=== PATIENT | male | born 1970 | race Caucasian/White ===

== ENCOUNTER 2023-02-28 16:45 | Emergency (ER) | payer MEDICAID ==
--- NOTE | 2023-02-28 17:01 | ED Physician Documentation ---
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 He was anticoagulated for 2-1/2 years and then stopped and focused on healthy diet and exercise. 3 years ago he kind of stopped the healthy diet and exercise. 2 weeks ago he developed some pleuritic left lower chest pain that he thought was an injury related to leaning over an edge on the boat about that time. He developed shortness of breath as well. He did not really consider the possibility of recurrent thromboembolic disease until he started develop right leg and calf pain yesterday. He is short of breath with it. PD PAST MEDICAL HISTORY - Present Medications Home Medications: Ambulatory Orders Medication Instructions Recorded Confirmed Losartan [Cozaar] 50 mg PO DAILY #60 tablet 02/28/23 - Allergies Allergies/Adverse Reactions: Allergies Allergy/AdvReac Type Severity Reaction Status Date / Time Penicillins Allergy Rash Verified 02/28/23 17:02 PD ED PE NORMAL - Vitals Vital signs reviewed: Yes - General General: Alert and oriented X 3, No acute distress - Neck Neck: Supple, no meningeal sign, No bony TTP - Cardiac Cardiac: RRR, No murmur - Respiratory Respiratory: No respiratory distress, Clear bilaterally, Other (Slightly splinting his breaths) - Abdomen Abdomen: Non tender - Derm Derm: Normal color, Warm and dry - Extremities Extremities: Other (Tenderness of the right upper calf with some swelling but no cellulitis.) - Neuro Neuro: Alert and oriented X 3, Normal speech Results - Vitals Vitals: Vital Signs - 24 hr 02/28/23 02/28/23 16:57 18:42 Temperature 36.4 C L Heart Rate 77 71 Respiratory 20 18 Rate Blood Pressure 207/133 H 176/116 H O2 Saturation 99 96 Oxygen O2 Source Room air - EKG (time done) 1710 EKG releavant findings:: EKG personally interpreted by author of this note. Relevant findings are: Rate: Rate (enter#) (67) Rhythm: NSR [place]: Normal Intervals: Normal [place] QRS: Normal Ischemia: ST elevation c/w repol. No: ST elevation c/w ischemia, ST depression - Labs Labs: Laboratory Tests 02/28/23 02/28/23 17:18 17:18 WBC 5.6 RBC 4.93 Hgb 13.9 L Hct 41.5 L MCV 84.2 MCH 28.2 MCHC 33.5 RDW 14.1 Plt Count 193 MPV 9.1 Neut # (Auto) 3.0 Lymph # (Auto) 1.7 [place] # (Auto) 0.9 Eos # (Auto) 0.1 Baso # (Auto) 0.0 Absolute Nucleated RBC 0.00 Nucleated RBC % 0.0 Sodium 139 Potassium 3.9 Chloride 104 Carbon Dioxide 28 Anion Gap 7.0 BUN 9 Creatinine 0.9 Estimated GFR (MDRD) 88 L Glucose 103 H Calcium 8.9 PD Medical Decision Making - ED course ED course: 52-year-old gentleman with history of unprovoked thromboembolic disease presents with right leg pain and chest wall pain. Chest wall pain was related to an injury, but he only started to worry about the right leg pain when he recalled his DVT/PE from 14 or 15 years ago. Work-up here in the emergency department demonstrates a CBC with very mild anemia, CMP that is grossly normal. He had a CAT scan of his chest angiography protocol and a right lower extremity ultrasound that were negative for thromboembolic disease. Were several incidental findings on the CAT scan of the chest which were discussed with him and the need for follow-up for further imaging was discussed and he was given a copy of the read to aid in follow-up. His blood pressure here has been fairly elevated and we discussed starting antihypertensives and he would like to go ahead and start that. He also plans to eat better and exercise. Departure - Departure Disposition: 01 Home, Self Care Clinical Impression: Chest wall pain, Right leg pain Hypertension Qualifiers: Hypertension type: primary hypertension Qualified Code(s): I10 - Essential (primary) hypertension Condition: Good Record reviewed to determine appropriate education?: Yes Instructions: Choices Low Salt, ED Contusion Chest Wall, ED Hypertension New Begin Tx Prescriptions: Losartan [Cozaar] 50 mg PO DAILY #60 tablet Comments: As discussed, there is no evidence of blood clot either on the CAT scan of your chest nor on the ultrasound of your leg. But, also, as discussed, there are several findings on the CAT scan of your chest needing follow-up. This includes but is not limited to a nodule in your right middle lobe, some mildly enlarged lymph nodes in your chest and some small lesions in your liver. Mention this to the your new primary care physician. Call Friday for an appointment.
[2023-02-28] MEDS ORDERED: iohexoL-300 100 ML VIAL ONE (17:08)
[2023-02-28 17:23] LABS: BASOPHILS % (AUTO) 0.5 %; EOSINOPHILS # (AUTO) 0.1 10^3/uL (0.0-0.7); EOSINOPHILS % (AUTO) 2.3 %; HCT - HEMATOCRIT 41.5 % (42.0-52.0); HGB - HEMOGLOBIN 13.9 g/dL (14.0-18.0); LYMPHOCYTES # (AUTO) 1.7 10^3/uL (1.5-3.5); LYMPHOCYTES % (AUTO) 29.6 %; MEAN CORPUSCULAR HEMOGLOBIN 28.2 pg (27.0-31.0); MEAN CORPUSCULAR HGB CONC 33.5 g/dL (32.0-36.0); MEAN CORPUSCULAR VOLUME 84.2 fL (80.0-94.0); MEAN PLATELET VOLUME 9.1 fL (7.4-11.4); MONOCYTES # (AUTO) 0.9 10^3/uL (0.0-1.0); MONOCYTES % (AUTO) 15.1 %; NEUTROPHILS % (AUTO) 52.3 %; PLT - PLATELET COUNT 193 10^3/uL (130-450); RED BLOOD COUNT 4.93 10^6/uL (4.70-6.10); RED CELL DISTRIBUTION WIDTH 14.1 % (12.0-15.0); WHITE BLOOD COUNT 5.6 x10^3/uL (4.8-10.8)
[2023-02-28 17:32] LABS: CALCIUM 8.9 mg/dL (8.5-10.3); CREATININE 0.9 mg/dL (0.6-1.2); POTASSIUM 3.9 mmol/L (3.5-5.0)
[2023-02-28] MEDS ORDERED: iohexoL-300 100 ML VIAL IVP ONE (17:59)
--- NOTE | 2023-02-28 18:38 | CT Report ---
PROCEDURE: ANGIO CHEST W/WO INDICATIONS: CP pe protocol CONTRAST: 80ml omni 300 TECHNIQUE: After the administration of intravenous contrast, 2 mm axial images were acquired from the pulmonary apices to the posterior costophrenic angles during the arterial phase. In addition, 1 mm lung kernel and 5 mm soft tissue kernel reconstructions were performed. 3-dimensional coronal oblique maximum int ensity projection (MIP) reformats, 8 mm axial MIP, and 5 mm coronal and sagittal MPR reformats were t hen performed through the thorax. For radiation dose reduction, the following was used: automated exp osure control, adjustment of mA and/or kV according to patient size. COMPARISON: None. FINDINGS: Image quality: Satisfactory. Large vessels: No filling defects within the opacified pulmonary arteries, accounting for motion and contrast timing. No evidence of acute aortic syndrome or aortic aneurysm. Lungs and pleura: No consolidation. No pleural effusions. There is a 0.9 cm nodule in right middle lo be (series 6 image 148). No pneumothorax. Mediastinum: Heart size is normal. Mild coronary calcification. No pericardial effusion. No large ves wesley abnormality. There is a 1.5 cm subcarinal lymph node. Small hiatal hernia. Chest wall and lower neck: Thyroid is unremarkable. No axillary or supraclavicular adenopathy by size . Bones: No aggressive osseous abnormality. Upper Abdomen: There is a 2.5 cm subtle enhancing mass in the posterior segment of right hepatic lobe (series 5 image 136). In addition, there is a 1.5 cm subtle enhancing nodule in the left hepatic lob e (series 5 image 135). IMPRESSION: 1. No evidence for pulmonary embolism. 2. Mild coronary atherosclerosis. 3. A 0.9 cm right middle lobe nodule. Recommend a short-term follow-up chest CT in 3 months to docume nt stability. 4. Mildly enlarged mediastinal lymph node. This finding is nonspecific. This lymph node can be follow ed on follow-up chest CT. 5. 2 indeterminate subtle enhancing nodules are seen in liver. Both could present hepatic hemangiomas but other hepatic disease including hepatomas cannot be excluded. Recommend nonemergent ultrasound o r MRI for follow-up evaluation. Reviewed by: Sherrie Gracia MD on 02/28/2023 6:36 PM PDT Approved by: Sherrie Gracia MD on 02/28/2023 6:36 PM PDT Station ID: [id number]
--- NOTE | 2023-02-28 18:59 | Ultrasound Report ---
PROCEDURE: Duplex Ext Veins Right INDICATIONS: RLE pain TECHNIQUE: Real-time imaging, as well as color and pulse Doppler interrogation, were performed of the lower extr emity deep veins from the inguinal ligament to the popliteal fossa. COMPARISON: None. FINDINGS: The deep veins are normally compressible, and free of intraluminal thrombus. Color and pu lse Doppler demonstrate normal phasic intraluminal flow. There is normal augmentation response to di stal compression maneuver. IMPRESSION: No DVT in the right lower extremity. Reviewed by: Sherrie Gracia MD on 02/28/2023 6:58 PM PDT Approved by: Sherrie Gracia MD on 02/28/2023 6:58 PM PDT Station ID: [id number]
[2023-02-28 19:22] VITALS: BP 151/96
== END 2023-02-28 19:20 | disposition home or self-care (01) ==
LOC: ED 16:45
DX: M79.661 Pain in right lower leg (principal); R07.89 Other chest pain; I10 Essential (primary) hypertension; R91.1 Solitary pulmonary nodule; R59.0 Localized enlarged lymph nodes; K76.9 Liver disease, unspecified
CPT/HCPCS: 36415; 71275; 80048; 85025; 93005; 93971; 99284; Q9967